=== PATIENT | female | born 1985 | race American Indian/Alaskan Native ===

== ENCOUNTER 2019-12-18 20:28 | Observation (INO) | payer SELFPAY ==
[2019-12-18] MEDS ORDERED: SODIUM CHLORIDE 0.9% 1000 ML 1,000 ML IV ONE (20:43)
--- NOTE | 2019-12-18 20:43 | Emergency Department Report ---
HPI - General Time Seen by Provider: 12/18/19 20:32 - HPI HPI: This is an -Mexican female, who is age could be anywhere between 30 to 49 years old, who presents via EMS from a local motel with altered mental status and EMS as excited delirium. EMS and police were called after the patient was found going [id number] at the motel, beating on the door, yelling, and appea red to be trying to get into different rooms. The patient had to be physically restrained and was given 5 mg of Haldol, 5 mg of Versed, and 50 mg of Benadryl, IM, in order to chemically subdue her and bring her in for evaluation. At this time the patient is arousable but does appear altered or confused, possibly intoxicated. She says that her name is Alyce Leigh, which is the only information EMS got as well and cannot be verified. Otherwise the patient is a poor historian. ED Review of Systems ROS: Stated complaint: AMS Other details as noted in HPI Comment: Unobtainable due to pts medical conditions Physical Exam - Physical Exam Physical Exam: GENERAL: The patient is well-developed well-nourished. HENT: Normocephalic. Atraumatic. Patient has moist mucous membranes. EYES: Extraocular motions are intact. Pupils equal reactive to light bilater ally. NECK: Supple. Trachea is midline. CHEST/LUNGS: Clear to auscultation. There is no respiratory distress noted. HEART/CARDIOVASCULAR: Regular. There is mild tachycardia. There is no murmur. ABDOMEN: Abdomen is soft, nontender. Patient has normal bowel sounds. SKIN: Skin is warm and dry. NEURO: The patient is sleepy but arousable. Patient is confused. Follows some commands. Withdraws from painful stimuli. MUSCULOSKELETAL: There is no tenderness or deformity. There is no evidence of acute injury. ED Course - Reevaluation(s) Reevaluation #1: 12/19/19 00:23 Lab Results 12/18/19 12/18/19 12/18/19 Range/Units 20:46 20:46 20:46 WBC 8.5 (4.5-11.0) K/mm3 RBC 4.33 (3.65-5.03) M/mm3 Hgb 13.3 (10.1-14.3) gm/dl Hct 39.5 (30.3-42.9) % MCV 91 (79-97) fl MCH 31 (28-32) pg MCHC 34 (30-34) % RDW 16.1 H (13.2-15.2) % Plt Count 245 (140-440) K/mm3 Lymph % (Auto) 13.3 L (13.4-35.0) % Geary % (Auto) 10.2 H (0.0-7.3) % Eos % (Auto) 0.4 (0.0-4.3) % Baso % (Auto) 0.3 (0.0-1.8) % Lymph # 1.1 L (1.2-5.4) K/mm3 Geary # 0.9 H (0.0-0.8) K/mm3 Eos # 0.0 (0.0-0.4) K/mm3 Baso # 0.0 (0.0-0.1) K/mm3 Seg Neutrophils % 75.8 H (40.0-70.0) % Seg Neutrophils # 6.4 (1.8-7.7) K/mm3 Sodium 139 (137-145) mmol/L Potassium 2.7 L* (3.6-5.0) mmol/L Chloride 101.9 (98-107) mmol/L Carbon Dioxide 18 L (22-30) mmol/L Anion Gap 22 mmol/L BUN 6 L (7-17) mg/dL Creatinine 1.0 (0.6-1.2) mg/dL Estimated GFR 49 ml/min BUN/Creatinine Ratio 6 % Glucose 122 H (65-100) mg/dL Calcium 9.6 (8.4-10.2) mg/dL Magnesium (1.7-2.3) mg/dL Total Bilirubin 0.90 (0.1-1.2) mg/dL AST 30 (5-40) units/L ALT 10 (7-56) units/L Alkaline Phosphatase 64 (35-129) units/L Ammonia 66.0 H (25-60) umol/L Total Creatine Kinase 329 H (30-135) units/L Troponin T < 0.010 (0.00-0.029) ng/mL Total Protein 7.8 (6.3-8.2) g/dL Albumin 4.2 (3.9-5) g/dL Albumin/Globulin Ratio 1.2 % TSH (0.270-4.200) mlU/mL Urine Color (Yellow) Urine Turbidity (Clear) Urine pH (5.0-7.0) Ur Specific [place] (1.003-1.030) Urine Protein (Negative) mg/dL Urine Glucose (UA) (Negative) mg/dL Urine Ketones (Negative) mg/dL Urine Blood (Negative) Urine Nitrite (Negative) Urine Bilirubin (Negative) Urine Urobilinogen (<2.0) mg/dL Ur Leukocyte Esterase (Negative) Urine WBC (Auto) (0.0-6.0) /HPF Urine RBC (Auto) (0.0-6.0) /HPF U Epithel Cells (Auto) (0-13.0) /HPF Urine Bacteria (Auto) (Negative) /HPF Urine Mucus /HPF Urine Sperm (FUELER) /HPF Salicylates (2.8-20.0) mg/dL Urine Opiates Screen Urine Methadone Screen Acetaminophen (10.0-30.0) ug/mL Ur Barbiturates Screen Ur Phencyclidine Scrn Ur Amphetamines Screen U Benzodiazepines Scrn Urine Cocaine Screen U Marijuana (THC) Screen Drugs of Abuse Note Plasma/Serum Alcohol (0-0.07) % 12/18/19 12/18/19 12/18/19 Range/Units 20:46 20:46 20:46 WBC (4.5-11.0) K/mm3 RBC (3.65-5.03) M/mm3 Hgb (10.1-14.3) gm/dl Hct (30.3-42.9) % MCV (79-97) fl MCH (28-32) pg MCHC (30-34) % RDW (13.2-15.2) % Plt Count (140-440) K/mm3 Lymph % (Auto) (13.4-35.0) % Geary % (Auto) (0.0-7.3) % Eos % (Auto) (0.0-4.3) % Baso % (Auto) (0.0-1.8) % Lymph # (1.2-5.4) K/mm3 Geary # (0.0-0.8) K/mm3 Eos # (0.0-0.4) K/mm3 Baso # (0.0-0.1) K/mm3 Seg Neutrophils % (40.0-70.0) % Seg Neutrophils # (1.8-7.7) K/mm3 Sodium (137-145) mmol/L Potassium (3.6-5.0) mmol/L Chloride (98-107) mmol/L Carbon Dioxide (22-30) mmol/L Anion Gap mmol/L BUN (7-17) mg/dL Creatinine (0.6-1.2) mg/dL Estimated GFR ml/min BUN/Creatinine Ratio % Glucose (65-100) mg/dL Calcium (8.4-10.2) mg/dL Magnesium (1.7-2.3) mg/dL Total Bilirubin (0.1-1.2) mg/dL AST (5-40) units/L ALT (7-56) units/L Alkaline Phosphatase (35-129) units/L Ammonia (25-60) umol/L Total Creatine Kinase (30-135) units/L Troponin T (0.00-0.029) ng/mL Total Protein (6.3-8.2) g/dL Albumin (3.9-5) g/dL Albumin/Globulin Ratio % TSH 0.522 (0.270-4.200) mlU/mL Urine Color (Yellow) Urine Turbidity (Clear) Urine pH (5.0-7.0) Ur Specific [place] (1.003-1.030) Urine Protein (Negative) mg/dL Urine Glucose (UA) (Negative) mg/dL Urine Ketones (Negative) mg/dL Urine Blood (Negative) Urine Nitrite (Negative) Urine Bilirubin (Negative) Urine Urobilinogen (<2.0) mg/dL Ur Leukocyte Esterase (Negative) Urine WBC (Auto) (0.0-6.0) /HPF Urine RBC (Auto) (0.0-6.0) /HPF U Epithel Cells (Auto) (0-13.0) /HPF Urine Bacteria (Auto) (Negative) /HPF Urine Mucus /HPF Urine Sperm (FUELER) /HPF Salicylates < 0.3 L (2.8-20.0) mg/dL Urine Opiates Screen Urine Methadone Screen Acetaminophen 5.0 L (10.0-30.0) ug/mL Ur Barbiturates Screen Ur Phencyclidine Scrn Ur Amphetamines Screen U Benzodiazepines Scrn Urine Cocaine Screen U Marijuana (THC) Screen Drugs of Abuse Note Plasma/Serum Alcohol (0-0.07) % 12/18/19 12/18/19 12/18/19 Range/Units 20:46 21:55 22:00 WBC (4.5-11.0) K/mm3 RBC (3.65-5.03) M/mm3 Hgb (10.1-14.3) gm/dl Hct (30.3-42.9) % MCV (79-97) fl MCH (28-32) pg MCHC (30-34) % RDW (13.2-15.2) % Plt Count (140-440) K/mm3 Lymph % (Auto) (13.4-35.0) % Geary % (Auto) (0.0-7.3) % Eos % (Auto) (0.0-4.3) % Baso % (Auto) (0.0-1.8) % Lymph # (1.2-5.4) K/mm3 [place]ary # (0.0-0.8) K/mm3 Eos # (0.0-0.4) K/mm3 Baso # (0.0-0.1) K/mm3 Seg Neutrophils % (40.0-70.0) % Seg Neutrophils # (1.8-7.7) K/mm3 Sodium (137-145) mmol/L Potassium (3.6-5.0) mmol/L Chloride (98-107) mmol/L Carbon Dioxide (22-30) mmol/L Anion Gap mmol/L BUN (7-17) mg/dL Creatinine (0.6-1.2) mg/dL Estimated GFR ml/min BUN/Creatinine Ratio % Glucose (65-100) mg/dL Calcium (8.4-10.2) mg/dL Magnesium 2.00 (1.7-2.3) mg/dL Total Bilirubin (0.1-1.2) mg/dL AST (5-40) units/L ALT (7-56) units/L Alkaline Phosphatase (35-129) units/L Ammonia (25-60) umol/L Total Creatine Kinase (30-135) units/L Troponin T (0.00-0.029) ng/mL Total Protein (6.3-8.2) g/dL Albumin (3.9-5) g/dL Albumin/Globulin Ratio % TSH (0.270-4.200) mlU/mL Urine Color Adelita (Yellow) Urine Turbidity Cloudy (Clear) Urine pH 6.0 (5.0-7.0) Ur Specific Almo 1.026 (1.003-1.030) Urine Protein 100 mg/dl (Negative) mg/dL Urine Glucose (UA) Neg (Negative) mg/dL Urine Ketones 20 (Negative) mg/dL Urine Blood Neg (Negative) Urine Nitrite Neg (Negative) Urine Bilirubin Neg (Negative) Urine Urobilinogen 2.0 (<2.0) mg/dL Ur Leukocyte Esterase Tr (Negative) Urine WBC (Auto) 11.0 H (0.0-6.0) /HPF Urine RBC (Auto) 4.0 (0.0-6.0) /HPF U Epithel Cells (Auto) 1.0 (0-13.0) /HPF Urine Bacteria (Auto) 1+ (Negative) /HPF Urine Mucus 3+ /HPF Urine Sperm Few (FUELER) /HPF Salicylates (2.8-20.0) mg/dL Urine Opiates Screen Urine Methadone Screen Acetaminophen (10.0-30.0) ug/mL Ur Barbiturates Screen Ur Phencyclidine Scrn Ur Amphetamines Screen U Benzodiazepines Scrn Urine Cocaine Screen U Marijuana (THC) Screen Drugs of Abuse Note Plasma/Serum Alcohol < 0.01 (0-0.07) % 12/18/19 Range/Units 22:00 WBC (4.5-11.0) K/mm3 RBC (3.65-5.03) M/mm3 Hgb (10.1-14.3) gm/dl Hct (30.3-42.9) % MCV (79-97) fl MCH (28-32) pg MCHC (30-34) % RDW (13.2-15.2) % Plt Count (140-440) K/mm3 Lymph % (Auto) (13.4-35.0) % Geary % (Auto) (0.0-7.3) % Eos % (Auto) (0.0-4.3) % Baso % (Auto) (0.0-1.8) % Lymph # (1.2-5.4) K/mm3 Geary # (0.0-0.8) K/mm3 Eos # (0.0-0.4) K/mm3 Baso # (0.0-0.1) K/mm3 Seg Neutrophils % (40.0-70.0) % Seg Neutrophils # (1.8-7.7) K/mm3 Sodium (137-145) mmol/L Potassium (3.6-5.0) mmol/L Chloride (98-107) mmol/L Carbon Dioxide (22-30) mmol/L Anion Gap mmol/L BUN (7-17) mg/dL Creatinine (0.6-1.2) mg/dL Estimated GFR ml/min BUN/Creatinine Ratio % Glucose (65-100) mg/dL Calcium (8.4-10.2) mg/dL Magnesium (1.7-2.3) mg/dL Total Bilirubin (0.1-1.2) mg/dL AST (5-40) units/L ALT (7-56) units/L Alkaline Phosphatase (35-129) units/L Ammonia (25-60) umol/L Total Creatine Kinase (30-135) units/L Troponin T (0.00-0.029) ng/mL Total Protein (6.3-8.2) g/dL Albumin (3.9-5) g/dL Albumin/Globulin Ratio % TSH (0.270-4.200) mlU/mL Urine Color (Yellow) Urine Turbidity (Clear) Urine pH (5.0-7.0) Ur Specific Almo (1.003-1.030) Urine Protein (Negative) mg/dL Urine Glucose (UA) (Negative) mg/dL Urine Ketones (Negative) mg/dL Urine Blood (Negative) Urine Nitrite (Negative) Urine Bilirubin (Negative) Urine Urobilinogen (<2.0) mg/dL Ur Leukocyte Esterase (Negative) Urine WBC (Auto) (0.0-6.0) /HPF Urine RBC (Auto) (0.0-6.0) /HPF U Epithel Cells (Auto) (0-13.0) /HPF Urine Bacteria (Auto) (Negative) /HPF Urine Mucus /HPF Urine Sperm (FUELER) /HPF Salicylates (2.8-20.0) mg/dL Urine Opiates Screen Presumptive negative Urine Methadone Screen Presumptive negative Acetaminophen (10.0-30.0) ug/mL Ur Barbiturates Screen Presumptive negative Ur Phencyclidine Scrn Presumptive negative Ur Amphetamines Screen Presumptive positive U Benzodiazepines Scrn Presumptive positive Urine Cocaine Screen Presumptive positive U Marijuana (THC) Screen Presumptive positive Drugs of Abuse Note Disclamer Plasma/Serum Alcohol (0-0.07) % ED Medical Decision Making - Lab Data Result diagrams: 12/18/19 20:46 12/18/19 20:46 - EKG Data -: EKG Interpreted by Me EKG shows normal: sinus rhythm, axis, intervals (prolonged QTc interval), QRS complexes (LVH), ST-T waves Rate: tachycardia (104 bpm) - EKG Data When compared to previous EKG there are: previous EKG unavailable Interpretation: other (Sinus tachycardia at 104 bpm, LVH, prolonged QTc interval) - Radiology Data Radiology results: report reviewed, image reviewed interpreted by me: Chest x-ray does not show any acute process. There are no pleural effusions, obvious pneumonia and there is no pneumothorax. CT head/brain wo con INDICATION / CLINICAL INFORMATION: 89 years Female; Altered mental status. TECHNIQUE: Routine CT head without contrast. All CT scans at this location are performed using CT dose reduction for ALARA by means of automated exposure control. COMPARISON: None. FINDINGS: BRAIN / INTRACRANIAL CONTENTS: No acute hemorrhage, mass effect, midline shift, hydrocephalus, or acute, large territorial infarct. No chronic infarct or atrophy appreciated. No significant white matter abnormality. CRANIOCERVICAL JUNCTION: No significant abnormality. ORBITS: No significant abnormality of visualized orbits. SINUSES / MASTOIDS: No significant abnormality in the visualized paranasal sinuses or mastoid air cells. ADDITIONAL FINDINGS: None. IMPRESSION: 1. No focal mass, hemorrhage, hydrocephalus, or acute, large territorial infarct. - Medical Decision Making This patient presents to the emergency department for evaluation of altered mental status and apparently had some excited delirium. The patient was seen at a local motel yelling, banging on doors, and appearing to try to get into other peoples rooms. She required some chemical sedation by EMS prior to arrival. Upon arrival, the patient is calm but is still altered. The only information she gives, or the only thing that she said to me, is giving us the wrong name. The patient was listed as a medical emergency but it appears that registration was able to verify her identification at some point. A CT scan of the head without contrast did not show any bleed, shift, mass, ischemia, or any other acute process. EKG did not show any morphology consistent with ST elevation AL. Patient's labs show some mild renal insufficiency with a GFR of 49, hypokalemia with a potassium of 2.7, slightly elevated ammonia level, and a urine drug screen positive for amphetamines, cocaine, benzodiazepines and marijuana. Patient was given some IV fluid resuscitation, potassium chloride replacement. She will be admitted to the hospital for further evaluation and treatment and was accepted for admission by the hospitalist, Dr. Zuniga. Critical Care Time: No Critical care attestation.: If time is entered above; I have spent that time in minutes in the direct care of this critically ill patient, excluding procedure time. ED Disposition Clinical Impression: Polysubstance abuse, Hypokalemia, Hyperammonemia, Mild renal insufficiency Altered mental status Qualifiers: Altered mental status type: unspecified Qualified Code(s): R41.82 - Altered mental status, unspecified Disposition: 09 OP ADMIT IP TO THIS HOSP Is pt being admited?: Yes Condition: Serious Time of Disposition: 22:56
[2019-12-18 21:08] LABS: Basophils % (Auto) 0.3 % (0.0-1.8); Eosinophils % (Auto) 0.4 % (0.0-4.3); Hematocrit 39.5 % (30.3-42.9); Hemoglobin 13.3 gm/dl (10.1-14.3); Lymphocytes # (Auto) 1.1 K/mm3 (1.2-5.4); Lymphocytes % (Auto) 13.3 % (13.4-35.0); Mean Corpuscular HGB Conc 34 % (30-34); Mean Corpuscular Volume 91 fl (79-97); Monocytes # (Auto) 0.9 K/mm3 (0.0-0.8); Monocytes % (Auto) 10.2 % (0.0-7.3); Platelet Count 245 K/mm3 (140-440); Red Blood Count 4.33 M/mm3 (3.65-5.03); Red Cell Distribution Width 16.1 % (13.2-15.2)
--- NOTE | 2019-12-18 21:11 | XRay Report ---
CHEST 1 VIEW INDICATION / CLINICAL INFORMATION: Altered mental status. COMPARISON: None available. FINDINGS: SUPPORT DEVICES: None. HEART / MEDIASTINUM: No significant abnormality. LUNGS / PLEURA: No significant pulmonary or pleural abnormality.. No pneumothorax. ADDITIONAL FINDINGS: No significant additional findings. IMPRESSION: 1. No acute findings. Signer Name: Nakul Cardona MD Signed: 12/18/2019 9:07 PM Workstation Name: [id number]
[2019-12-18] MEDS ORDERED: LORazepam 2 MG/ML VIAL IV ONE (21:20)
[2019-12-18 21:31] LABS: Alanine Aminotransferase 10 units/L (7-56); Albumin 4.2 g/dL (3.9-5); BUN/Creatinine Ratio 6; Blood Urea Nitrogen 6 mg/dL (7-17); Calcium 9.6 mg/dL (8.4-10.2); Hemolysis Index 10
[2019-12-18] MEDS ORDERED: POTASSIUM CHLORIDE ER 10 MEQ TAB PO ONE (21:40)
[2019-12-18] MEDS: POTASSIUM CHLORIDE 10 MEQ 10 MEQ/100 ML BAG IV SCH ×2 (21:47→22:52)
--- NOTE | 2019-12-18 21:55 | Cat Scan Report ---
CT head/brain wo con INDICATION / CLINICAL INFORMATION: 89 years Female; Altered mental status. TECHNIQUE: Routine CT head without contrast. All CT scans at this location are performed using CT dos e reduction for ALARA by means of automated exposure control. COMPARISON: None. FINDINGS: BRAIN / INTRACRANIAL CONTENTS: No acute hemorrhage, mass effect, midline shift, hydrocephalus, or acu te, large territorial infarct. No chronic infarct or atrophy appreciated. No significant white matter abnormality. CRANIOCERVICAL JUNCTION: No significant abnormality. ORBITS: No significant abnormality of visualized orbits. SINUSES / MASTOIDS: No significant abnormality in the visualized paranasal sinuses or mastoid air donnie ls. ADDITIONAL FINDINGS: None. IMPRESSION: 1. No focal mass, hemorrhage, hydrocephalus, or acute, large territorial infarct. Signer Name: Sameer Schumacher MD, III Signed: 12/18/2019 9:51 PM Work[address] Name: [id number]
[2019-12-18 22:35] LABS: Bacteria,Urine 1+ /HPF (Negative); Bilirubin,Urine NEG (Negative); Blood,Urine NEG (Negative); Color,Urine Amber (Yellow); Mucus,Urine 3+ /HPF; Sperm,Urine FEW /HPF (NP)
[2019-12-18 22:41] LABS: Amphetamine Screen,Urine PRESUMPTIVE POSITIVE; Benzodiazepines Screen,Urine PRESUMPTIVE POSITIVE; Cannabinoid Screen,Urine PRESUMPTIVE POSITIVE; Cocaine Screen,Urine PRESUMPTIVE POSITIVE; Methadone Screen,Urine PRESUMPTIVE NEGATIVE; Opiate Screen,Urine PRESUMPTIVE NEGATIVE
[2019-12-19] MEDS ORDERED: THIAMINE 100 MG, FOLIC ACID 1 MG, MULTIPLE VITAMIN INJ, ADULT 10 ML in SODIUM CHLORIDE ... IV ONE (00:07)
[2019-12-19] MEDS ORDERED: POTASSIUM CHLORIDE 10 MEQ 20 MEQ/200 ML BAG IV ONE (00:41)
[2019-12-19] MEDS ORDERED: HEPARIN 5,000 UNIT/1 ML VIAL ONE (00:41)
[2019-12-19] MEDS: POTASSIUM CHLORIDE 10 MEQ 10 MEQ/100 ML BAG IV SCH ×2 (00:50→01:55)
[2019-12-19] MEDS: HEPARIN 5,000 UNIT/1 ML VIAL SUB-Q SCH ×3 (00:50→21:54)
--- NOTE | 2019-12-19 03:04 | XRay Report ---
LEFT WRIST 3 VIEWS [id number] INDICATION: right wrist pain COMPARISON: None available. FINDINGS: No fractures or dislocations are seen. Signer Name: Guru Rand MD Signed: 12/19/2019 3:00 AM Workstation Name: [id number]
[2019-12-19] MEDS: LACTULOSE 20 GM/30 ML ORAL LIQD PO SCH ×2 (03:11→13:19)
--- NOTE | 2019-12-19 07:31 | History and Physical Report ---
History of Present Illness Date of examination: 12/18/19 Date of admission: 12/18/19 22:56 Chief complaint: Altered mental Status History of present illness: 34 year old female brought in by police and EMS after she was found going from one motel room to the other yelling and disturbing the people in the area.There was no history of fever , shortness of breath or cough. Past History Past Medical History: other (DRUG ABUSE) Past Surgical History: No surgical history Social history: alcohol abuse (ILLICIT DRUG ABUSE) Family history: no significant family history Medications and Allergies Allergies Allergy/AdvReac Type Severity Reaction Status Date / Time Unable to Assess Allergy Unverified 12/18/19 21:11 Active Meds: Active Medications Heparin Sodium (Porcine) (Heparin) 5,000 unit SUB-Q Q12HR [facility] Last Admin: 12/19/19 00:50 Dose: 5,000 unit Documented by: Lactulose (Cephulac) 20 gm PO Q12H LIV Stop: 12/19/19 13:01 Last Admin: 12/19/19 03:11 Dose: Not Given Documented by: Review of Systems Constitutional: weakness, no weight loss, no weight gain, no fever, no chills, no sweats, no night sweats, no anorexia, no fatigue, no malaise Eyes: bilateral: other (BILATERAL EYE SYMPTOM) Ears, nose, mouth and throat: no ear pain, no ear discharge, no decreased hear ing, no nose pain, no nasal congestion, no nasal discharge, no sinus pressure, no dental pain, no mouth pain, no dysphagia, no hoarseness, no sore throat, no swelling in mouth, no headache, no vertigo Breasts: deferred Cardiovascular: no chest pain, no orthopnea, no palpitations, no rapid/irregular heart beat, no edema, no syncope, no lightheadedness, no claudication Respiratory: no cough, no excessive sputum, no hemoptysis, no shortness of breath, no dyspnea on exertion, no wheezing, no pleurisy Gastrointestinal: no abdominal pain, no nausea, no vomiting, no diarrhea, no constipation, no change in bowel habits, no hematemesis, no loss of appetite Genitourinary Female: no pelvic pain, no flank pain, no urinary frequency, no stress incontinence, no incomplete emptying, no vaginal itching, no vaginal dryness, no decreased libido Menstruation: no period normal, no period heavy, no period spotting Rectal: no pain, no itching Musculoskeletal: no neck stiffness, no neck pain, no shooting arm pain, no arm numbness/tingling, no low back pain, no shooting leg pain, no morning stiffness, no muscle weakness, no muscle cramps Integumentary: no rash, no pruritis, no redness, no sores, no wounds, no bullae, no lesions, no darkening of skin Neurological: no head injury, no paralysis, no weakness, no parathesias, no numbness, no tingling, no seizures, no syncope, no tremors, no vertigo, no headaches, no migraines, no convulsions Psychiatric: no anxiety, no memory loss, no change in sleep habits, no sleep disturbances, no insomnia, no hypersomnia, no change in appetite, no change in libido Endocrine: no cold intolerance, no heat intolerance, no polyphagia, no polydipsia, no polyuria, no nocturia Hematologic/Lymphatic: no easy bruising, no easy bleeding, no lymphadenopathy, no lymphedema Allergic/Immunologic: no persistent infections, no anaphylaxis Exam - Constitutional Vitals: Temp Pulse Resp BP Pulse Ox 99.1 F 86 18 105/67 98 12/19/19 05:16 12/19/19 05:16 12/19/19 05:16 12/19/19 05:16 12/19/19 05:16 General appearance: Present: no acute distress - EENT Eyes: Present: PERRL, EOM intact ENT: hearing intact, clear oral mucosa, dentition normal - Neck Neck: Present: supple, normal ROM - Respiratory Respiratory effort: normal - Cardiovascular Rhythm: regular Heart Sounds: Present: S1 & S2, gallop. Absent: systolic murmur, diastolic murmur - Extremities Extremities: no ischemia, No edema Peripheral Pulses: within normal limits - Abdominal General gastrointestinal: Present: soft, non-tender, non-distended. Absent: tender, distended, rigid, hepatomegaly, splenomegaly, mass, hernia Female genitourinary: Present: deferred - Rectal Rectal Exam: deferred - Integumentary Integumentary: Present: clear, warm, dry. Absent: jaundice, rash - Musculoskeletal Musculoskeletal: strength equal bilaterally - Psychiatric Psychiatric: appropriate mood/affect HEART Score - HEART Score Age: < 45 Risk factors: No known risk factors Troponin: Troponin T < 0.010 ng/mL (0.00-0.029) 12/18/19 20:46 - Critical Actions Critical Actions: 0-3 pts:0.9-1.7%risk of adverse cardiac event.Candidate for discharge Results - Labs CBC & Chem 7: 12/18/19 20:46 12/18/19 20:46 Labs: Laboratory Last Values WBC 8.5 K/mm3 (4.5-11.0) 12/18/19 20:46 RBC 4.33 M/mm3 (3.65-5.03) 12/18/19 20:46 Hgb 13.3 gm/dl (10.1-14.3) 12/18/19 20:46 Hct 39.5 % (30.3-42.9) 12/18/19 20:46 MCV 91 fl (79-97) 12/18/19 20:46 MCH 31 pg (28-32) 12/18/19 20:46 MCHC 34 % (30-34) 12/18/19 20:46 RDW 16.1 % (13.2-15.2) H 12/18/19 20:46 Plt Count 245 K/mm3 (140-440) 12/18/19 20:46 Lymph % (Auto) 13.3 % (13.4-35.0) L 12/18/19 20:46 [place] % (Auto) 10.2 % (0.0-7.3) H 12/18/19 20:46 Eos % (Auto) 0.4 % (0.0-4.3) 12/18/19 20:46 Baso % (Auto) 0.3 % (0.0-1.8) 12/18/19 20:46 Lymph # 1.1 K/mm3 (1.2-5.4) L 12/18/19 20:46 [place] # 0.9 K/mm3 (0.0-0.8) H 12/18/19 20:46 Eos # 0.0 K/mm3 (0.0-0.4) 12/18/19 20:46 Baso # 0.0 K/mm3 (0.0-0.1) 12/18/19 20:46 Seg Neutrophils % 75.8 % (40.0-70.0) H 12/18/19 20:46 Seg Neutrophils # 6.4 K/mm3 (1.8-7.7) 12/18/19 20:46 Sodium 139 mmol/L (137-145) 12/18/19 20:46 Potassium 2.7 mmol/L (3.6-5.0) L* 12/18/19 20:46 Chloride 101.9 mmol/L (98-107) 12/18/19 20:46 Carbon Dioxide 18 mmol/L (22-30) L 12/18/19 20:46 Anion Gap 22 mmol/L 12/18/19 20:46 BUN 6 mg/dL (7-17) L 12/18/19 20:46 Creatinine 1.0 mg/dL (0.6-1.2) 12/18/19 20:46 Estimated GFR 49 ml/min 12/18/19 20:46 BUN/Creatinine Ratio 6 % 12/18/19 20:46 Glucose 122 mg/dL (65-100) H 12/18/19 20:46 Calcium 9.6 mg/dL (8.4-10.2) 12/18/19 20:46 Magnesium 2.00 mg/dL (1.7-2.3) 12/18/19 21:55 Total Bilirubin 0.90 mg/dL (0.1-1.2) 12/18/19 20:46 AST 30 units/L (5-40) 12/18/19 20:46 ALT 10 units/L (7-56) 12/18/19 20:46 Alkaline Phosphatase 64 units/L (35-129) 12/18/19 20:46 Ammonia 66.0 umol/L (25-60) H 12/18/19 20:46 Total Creatine Kinase 329 units/L (30-135) H 12/18/19 20:46 Troponin T < 0.010 ng/mL (0.00-0.029) 12/18/19 20:46 Total Protein 7.8 g/dL (6.3-8.2) 12/18/19 20:46 Albumin 4.2 g/dL (3.9-5) 12/18/19 20:46 Albumin/Globulin Ratio 1.2 % 12/18/19 20:46 TSH 0.522 mlU/mL (0.270-4.200) 12/18/19 20:46 Urine Color Adelita (Yellow) 12/18/19 22:00 Urine Turbidity Cloudy (Clear) 12/18/19 22:00 Urine pH 6.0 (5.0-7.0) 12/18/19 22:00 Ur Specific [place] 1.026 (1.003-1.030) 12/18/19 22:00 Urine Protein 100 mg/dl mg/dL (Negative) 12/18/19 22:00 Urine Glucose (UA) Neg mg/dL (Negative) 12/18/19 22:00 Urine Ketones 20 mg/dL (Negative) 12/18/19 22:00 Urine Blood Neg (Negative) 12/18/19 22:00 Urine Nitrite Neg (Negative) 12/18/19 22:00 Urine Bilirubin Neg (Negative) 12/18/19 22:00 Urine Urobilinogen 2.0 mg/dL (<2.0) 12/18/19 22:00 Ur Leukocyte Esterase Tr (Negative) 12/18/19 22:00 Urine WBC (Auto) 11.0 /HPF (0.0-6.0) H 12/18/19 22:00 Urine RBC (Auto) 4.0 /HPF (0.0-6.0) 12/18/19 22:00 U Epithel Cells (Auto) 1.0 /HPF (0-13.0) 12/18/19 22:00 Urine Bacteria (Auto) 1+ /HPF (Negative) 12/18/19 22:00 Urine Mucus 3+ /HPF 12/18/19 22:00 Urine Sperm Few /HPF (SAFETY TECH) 12/18/19 22:00 Salicylates < 0.3 mg/dL (2.8-20.0) L 12/18/19 20:46 Urine Opiates Screen Presumptive negative 12/18/19 22:00 Urine Methadone Screen Presumptive negative 12/18/19 22:00 Acetaminophen 5.0 ug/mL (10.0-30.0) L 12/18/19 20:46 Ur Barbiturates Screen Presumptive negative 12/18/19 22:00 Ur Phencyclidine Scrn Presumptive negative 12/18/19 22:00 Ur Amphetamines Screen Presumptive positive 12/18/19 22:00 U Benzodiazepines Scrn Presumptive positive 12/18/19 22:00 Urine Cocaine Screen Presumptive positive 12/18/19 22:00 U Marijuana (THC) Screen Presumptive positive 12/18/19 22:00 Drugs of Abuse Note Disclamer 12/18/19 22:00 Plasma/Serum Alcohol < 0.01 % (0-0.07) 12/18/19 20:46 Cadena/IV: Voiding Method Toilet IV Catheter Type [Right INT / [place] Antecubital] Assessment and Plan - Patient Problems (1) Altered mental status Current Visit: Yes Status: Acute Qualifiers: Altered mental status type: unspecified Qualified Code(s): R41.82 - Altered mental status, unspecified Plan to address problem: 1. OXYGEN BY NASAL CANNULA 2. I.V ATIVAN PRN AGITATION (2) Hyperammonemia Current Visit: Yes Status: Acute Plan to address problem: LACTULOSE PO (3) Hypokalemia Current Visit: Yes Status: Acute Plan to address problem: 1. I.V KCL REPLACEMENT 2. BMP MORNITORING (4) Polysubstance abuse Current Visit: Yes Status: Acute Plan to address problem: I.V ATIVAN PRN AGITATION
[2019-12-19] MEDS ORDERED: POTASSIUM CHLORIDE ER 20 MEQ TAB PO ONE ×2 (07:48→10:30)
[2019-12-19 08:22] LABS: Blood Urea Nitrogen 4 mg/dL (7-17); Calcium 8.6 mg/dL (8.4-10.2); Hemolysis Index 14
[2019-12-19 08:30] LABS: BUN/Creatinine Ratio 6
--- NOTE | 2019-12-19 13:59 | Consultation ---
History of Present Illness - Reason for Consult Consult date: 12/19/19 Reason for consult: Bizarre Behaviors - Chief Complaint Chief complaint: Altered mental Status - History of Present Psychiatric Illness During my interview with the patient she is lying in bed with her eyes close. She is uncooperative, and avoidant. She is oriented x 3. The patient has to be frequently touched for her to respond to the questioning. She is not forthcoming. She says she was brought to the hospital because "they told me I was trying to get into a hotel." The patient denies SI/HI or hallucinations of any kind. When asked about illicit drug use, she is reluctant to answer. She then says "cocaine" sometimes. She describes her mood as "okay." The patient says she has a past history of schizophrenia. She says she takes "geodon." She denies past suicidal attempts. PAST PSYCHIATRIC HISTORY Diagnoses: Schizophrenia Suicide attempts or Self-harm behavior: Denies Prior psychiatric hospitalizations: Once Substance Abuse history: "cocaine" Previous psychiatric medications tried: denies Outpatient treatment: once PAST MEDICAL HISTORY: None reported Family Psychiatric History: None reported or documented SOCIAL HISTORY Marital Status: single Living Arrangements: with boyfriend Employment Status: Unemployed Access to guns/weapons: Denies Education: High school History of Abuse: Denies Legal History: Denies REVIEW OF SYSTEMS Constitutional: Negative for weight loss ENT: Negative for stridor Respiratory: Negative for cough or hemoptysis All other systems reviewed and are negative MENTAL STATUS EXAMINATION General Appearance and Behavior: Age appropriate Mood: "okay" Affect and affective range: congruent with mood Thought Process: Goal directed Speech: Normal volume and pace Thought Content Suicidal Ideation: Denies at present Homicidal Ideation: Denies HI Hallucinations: Denies Delusions: non elicited Memory/Cognition: Limited Attention: Normal RECOMMENDATIONS Substance Induced Mood Disorder MEDICATIONS: No scripts given Risks, benefits and alternatives of medications discussed with the patient, questions answered and consent obtained from patient. PSYCHOTHERAPY: Supportive psychotherapy provided MEDICAL: Per primary team DELIRIUM PRECAUTIONS: Please re-orient patient frequently, keep lights on during the day, and minimize benzodiazepines and opiates as these medications could worsen patient's confusion. MECHANICAL ORDNANCE ASSEMBLER: Per medical team DISPOSITION: Do not recommend acute inpatient psychiatry at this time. Can discharge home once medically clear The floor space allocator to give the patient resources for outpatient services for psych, cognitive behavior therapy and drug rehab The patient should abstain from all illicit drug use and alcohol. Will sign off. Thank you for the consult. Please contact with any questions and/or concerns. Medications and Allergies Allergies Allergy/AdvReac Type Severity Reaction Status Date / Time No Known Allergies Allergy Unverified 12/19/19 13:24 Active Meds: Active Medications Heparin Sodium (Porcine) (Heparin) 5,000 unit SUB-Q Q12HR LIV Last Admin: 12/19/19 10:13 Dose: 5,000 unit Documented by: Mental Status Exam - Vital signs Last Vital Signs Temp 98.9 F 12/19/19 11:31 Pulse 89 12/19/19 11:31 Resp 20 12/19/19 11:31 BP 112/51 12/19/19 11:31 Pulse Ox 96 12/19/19 11:31 Results Result Diagrams: 12/18/19 20:46 12/19/19 06:48 Abnormal lab results 12/18/19 12/18/19 12/18/19 Range/Units 20:46 20:46 20:46 RDW 16.1 H (13.2-15.2) % Lymph % (Auto) 13.3 L (13.4-35.0) % Crosby % (Auto) 10.2 H (0.0-7.3) % Lymph # 1.1 L (1.2-5.4) K/mm3 Crosby # 0.9 H (0.0-0.8) K/mm3 Seg Neutrophils % 75.8 H (40.0-70.0) % Potassium 2.7 L* (3.6-5.0) mmol/L Chloride (98-107) mmol/L Carbon Dioxide 18 L (22-30) mmol/L BUN 6 L (7-17) mg/dL Glucose 122 H (65-100) mg/dL Ammonia 66.0 H (25-60) umol/L Total Creatine Kinase 329 H (30-135) units/L Urine WBC (Auto) (0.0-6.0) /HPF Salicylates (2.8-20.0) mg/dL Acetaminophen (10.0-30.0) ug/mL 12/18/19 12/18/19 12/18/19 Range/Units 20:46 20:46 22:00 RDW (13.2-15.2) % Lymph % (Auto) (13.4-35.0) % Crosby % (Auto) (0.0-7.3) % Lymph # (1.2-5.4) K/mm3 Crosby # (0.0-0.8) K/mm3 Seg Neutrophils % (40.0-70.0) % Potassium (3.6-5.0) mmol/L Chloride (98-107) mmol/L Carbon Dioxide (22-30) mmol/L BUN (7-17) mg/dL Glucose (65-100) mg/dL Ammonia (25-60) umol/L Total Creatine Kinase (30-135) units/L Urine WBC (Auto) 11.0 H (0.0-6.0) /HPF Salicylates < 0.3 L (2.8-20.0) mg/dL Acetaminophen 5.0 L (10.0-30.0) ug/mL 12/19/19 Range/Units 06:48 RDW (13.2-15.2) % Lymph % (Auto) (13.4-35.0) % Crosby % (Auto) (0.0-7.3) % Lymph # (1.2-5.4) K/mm3 Crosby # (0.0-0.8) K/mm3 Seg Neutrophils % (40.0-70.0) % Potassium (3.6-5.0) mmol/L Chloride 108.2 H (98-107) mmol/L Carbon Dioxide 20 L (22-30) mmol/L BUN 4 L (7-17) mg/dL Glucose (65-100) mg/dL Ammonia (25-60) umol/L Total Creatine Kinase (30-135) units/L Urine WBC (Auto) (0.0-6.0) /HPF Salicylates (2.8-20.0) mg/dL Acetaminophen (10.0-30.0) ug/mL All other labs normal.
--- NOTE | 2019-12-19 17:47 | Discharge Summary ---
Providers - Providers Date of Admission: 12/18/19 22:56 Date of discharge: 12/19/19 Attending physician: JEAN MARIE TROY Primary care physician: DIPTI CAMERON MD Hospitalization Reason for admission: polysubstance abuse Condition: Serious Hospital course: 34 year old female with no prior medical history brought in by police and EMS after she was found going from one motel room to the other yelling and disturbing the people in the area.There was no history of fever , shortness of breath or cough. Here patient had urine positive for cocaine, methamphetamine. Her labs showed hypokalemia potassium of 2.7 and slight hyperammonemia. Patient was placed on observation. Patient stayed overnight and this afternoon, patient is awake and alert recall what happened yesterday saying that she was at a libertarian and had some drinks and also did drugs. Patient has been seen by psychiatry and has been cleared for discharge from psych point of view. I believe patient is stable to go home today. She has been advised to stop recreational drug use. Disposition: - TO HOME OR SELFCARE Core Measure Documentation - Palliative Care Palliative Care/ Comfort Measures: Not Applicable - Core Measures Any of the following diagnoses?: none Exam - Constitutional Vitals: Temp Pulse Resp BP Pulse Ox 98.8 F 89 20 117/72 98 12/19/19 15:15 12/19/19 15:15 12/19/19 15:15 12/19/19 15:15 12/19/19 15:15 Plan Diet: regular Additional Instructions: Continue psych medications. Follow up with psychiatry in the office. Abstain from drug abuse Follow up with: PRIMARY MD RAKESH [Primary Care Provider] - 3-5 Days
[2019-12-20 08:10] VITALS: BP 108/54
--- NOTE | 2019-12-20 10:07 | Discharge Summary ---
Providers - Providers Date of Admission: 12/18/19 22:56 Date of discharge: 12/20/19 Attending physician: JEAN MARIE TROY Primary care physician: RECREATION SUPERINTENDENT Hospitalization Condition: Serious Hospital course: 34 year old female with no prior medical history brought in by police and EMS after she was found going from one motel room to the other yelling and dist urbing the people in the area.There was no history of fever , shortness of breath or cough. Here patient had urine positive for cocaine, methamphetamine. Her labs showed hypokalemia potassium of 2.7 and slight hyperammonemia. Patient was placed on observation. Patient stayed overnight and this afternoon, patient is awake and alert recall what happened yesterday saying that she was at a democr[employer] and had some drinks and also did drugs. Patient has been seen by psychiatry and has been cleared for discharge from psych point of view. She has been advised to stop recreational drug use. Patient was planned for discharge on 12/18 but held due to [address] and patients address could not be confirmed as per RN. 12/19. Patient can be discharged today. She lives in [place] but usually comes to [place] to see her boyfriend. She is alert and oriented x3. Has good judgement and insight. She will be going to her boyfriends home from the hospital. Discussed with RN Disposition: DC-01 TO HOME OR SELFCARE Core Measure Documentation - Palliative Care Palliative Care/ Comfort Measures: Not Applicable - Core Measures Any of the following diagnoses?: none Exam - Constitutional Vitals: Temp Pulse Resp BP Pulse Ox 98.6 F 88 20 108/54 98 12/20/19 07:57 12/20/19 07:57 12/20/19 07:57 12/20/19 07:57 12/20/19 07:57 General appearance: Present: no acute distress, well-nourished - EENT Eyes: Present: PERRL ENT: hearing intact, clear oral mucosa - Neck Neck: Present: supple, normal ROM - Respiratory Respiratory effort: normal Respiratory: bilateral: CTA - Cardiovascular Heart Sounds: Present: S1 & S2. Absent: rub, click - Extremities Extremities: pulses symmetrical, No edema Peripheral Pulses: within normal limits - Abdominal General gastrointestinal: Present: soft, non-tender, non-distended, normal bowel sounds Female genitourinary: Present: normal - Integumentary Integumentary: Present: clear, warm, dry - Musculoskeletal Musculoskeletal: gait normal, strength equal bilaterally - Psychiatric Psychiatric: appropriate mood/affect, intact judgment & insight - Neurologic Neurologic: CNII-XII intact, moves all extremities Plan Additional Instructions: Continue psych medications. Follow up with psychiatry in the office. Abstain from drug abuse Follow up with: PRIMARY CARE, [Primary Care Provider] - 3-5 Days
== END 2019-12-20 13:03 | disposition home or self-care (01) ==
LOC: ED 20:28 → INTOOBSV 22:56 → 4A 22:56
PROVIDERS: ADMIT Internal Medicine; ATTEND Internal Medicine
DX: R41.82 Altered mental status, unspecified (principal); E72.20 Disorder of urea cycle metabolism, unspecified; E87.6 Hypokalemia; N28.9 Disorder of kidney and ureter, unspecified; F19.10 Other psychoactive substance abuse, uncomplicated; F17.210 Nicotine dependence, cigarettes, uncomplicated
CPT/HCPCS: 36415; 70450; 71045; 73110; 80048; 80053; 80307; 81001; 82140; 82550; 83735; 84443; 84484; 85025; 87086; 96365; 96366; 96368; 96372; 96375; 99285; 99406; G0378; J1644; J2060; J3411; J3480; J7030; 80320; 93005; G0480